=== PATIENT | female | born 2005 | race African-American/Black ===

== ENCOUNTER 2024-06-30 07:19 | Emergency (ER) | payer OTHER, MEDICAID ==
[~2024-06-30] VITALS: Ht 165.1 cm; Wt 57.0 kg
[2024-06-30 07:27] VITALS: O2SAT 100
[2024-06-30 08:02] LABS: BASOPHILS % 0.6 % (0.0-2.0); EOSINOPHILS % 1.7 % (0.0-5.0); HEMATOCRIT. 36.3 % (36.0-48.0); HEMOGLOBIN. 11.8 g/dL (12.0-16.0); LYMPHOCYTES % 20.9 % (20.0-50.0); MEAN CORPUSCULAR HEMOGLOBIN 28.7 pg (28.0-32.0); MEAN CORPUSCULAR HGB CONC 32.6 g/dL (31.0-37.0); MEAN CORPUSCULAR VOLUME 88.1 fL (81.0-99.0); MONOCYTES % 8.1 % (2.0-8.0); NEUTROPHILS % 68.7 % (40.0-76.0); PLATELET 253 x1000/uL (130-400); RED BLOOD CELL COUNT 4.12 mill/uL (4.2-5.4); RED CELL DISTRIBUTION WIDTH 16.1 % (11.6-14.6); WHITE BLOOD COUNT 12.2 x1000/uL (4.5-11.0)
[2024-06-30 08:05] LABS: CHLORIDE 108 mEq/L (98-107); POTASSIUM 3.5 mEq/L (3.5-5.1); SODIUM 138 mEq/L (136-145)
[2024-06-30 08:06] LABS: CALCIUM 8.5 mg/dL (8.7-10.4); CARBON DIOXIDE 26 mEq/L (21-32)
[2024-06-30 08:11] LABS: CREATININE 0.9 mg/dL (0.6-1.0); GLUCOSE 253 mg/dL (70-105); UREA NITROGEN BLOOD 18 mg/dL (9-23)
[2024-06-30 08:17] LABS: TROPONIN I HIGH SENSITIVITY < 4 ng/L (3.0-34)
[2024-06-30 08:43] LABS: INR 1.1; PROTHROMBIN TIME 11.3 sec (9.6-11.0)
[2024-06-30 09:30] LABS: CLARITY URINE CLEAR (CLEAR); COLOR URINE YELLOW (YELLOW); GLUCOSE URINE 3+ (NEGATIVE); KETONES URINE TRACE (NEGATIVE); LEUKOCYTE ESTERASE URINE NEGATIVE (NEGATIVE); NITRITE URINE NEGATIVE (NEGATIVE); OCCULT BLOOD URINE NEGATIVE (NEGATIVE); PROTEIN URINE 3+ (NEGATIVE); SPECIFIC GRAVITY URINE 1.027 (1.005-1.030); UROBILINOGEN URINE 0.2 E.U./dL (0.2-1.0)
[2024-06-30 09:48] LABS: MUCUS URINE 2+ /lpf (< = 2+)
[2024-06-30 09:49] LABS: SQUAMOUS EPITHELIAL CELL URINE RARE /lpf (RARE/1+)
[2024-06-30 09:51] LABS: BACTERIA URINE TRACE; WBC URINE 0-2 /hpf (0-2)
[2024-06-30 10:05] VITALS: BP 128/78; PULSE 80; RESP 16; TEMP 36.5; O2SAT 100
== END 2024-06-30 10:06 | disposition home or self-care (01) ==
LOC: ER 07:19
DX: E11.649 Type 2 diabetes mellitus with hypoglycemia without coma (principal); I49.9 Cardiac arrhythmia, unspecified
CPT/HCPCS: 80048; 81003; 82962; 85025; 85610; 84484; 36415; 71045; 93005; 99285; Z7610 ×2; A4606